=== PATIENT | female | born 1980 | race Caucasian/White ===

== ENCOUNTER → 2016-09-25 | Outpatient (CLI) | payer OTHER | LOC: BRMIMAGING 08:34 | PROVIDERS: ATTEND Internal Medicine | DX: S63.012A Subluxation of distal radioulnar joint of left wrist, initial encounter (principal); S63.071A Subluxation of distal end of right ulna, initial encounter; S63.111A Subluxation of metacarpophalangeal joint of right thumb, initial encounter | CPT/HCPCS: 73110-PO ==